=== PATIENT | male | born 1960 | race Caucasian/White ===

== ENCOUNTER 2018-04-21 00:12 | Outpatient (CLI) | payer BC ==
[2018-04-21 11:06] LABS: #Basophils 0.1 thou/uL (0.0-0.2); #Eosinphils 0.4 thou/uL (0.0-0.7); #Lymphocytes 1.8 thou/uL (1.20-3.40); #Monocytes 0.6 thou/uL (0.11-0.59); #Neutrophils 2.8 thou/uL (1.40-6.50); %Basophils 1.1 % (0.0-1.0); %Eosinophils 7.5 % (0.0-10.0); %Monocytes 10.3 % (0.0-10.0); %Neutrophils 49.1 % (42.0-75.0); Hemoglobin 15.5 g/dL (14.0-18.0); Mean Corpuscular HGB CONC 32.9 g/dL (32.0-36.0); Mean Corpuscular Hemoglobin 30.5 pg (27.0-31.0); Mean Corpuscular Volume 92.5 fL (78.0-98.0); Mean Platelet Volume 8.2 fL (7.4-10.4); Platelet Count 182 thou/uL (130-400); RBC Distribution Width 10.9 % (11.5-14.5); Red Blood Cell (RBC) Count 5.08 mill/uL (4.70-6.10); White Blood Cell (WBC) Count 5.6 thou/uL (4.8-10.8)
[2018-04-21 11:23] LABS: Anion Gap 10 mmol/L (10-20); BUN (Urea Nitrogen) 17 mg/dL (8.4-25.7); Calc. Creatinine Clearance 0 mL/min (70-130); Carbon Dioxide 26 mmol/L (22-29); Chloride 108 mmol/L (98-107); Estimated GFR-MDRD 59; Glucose 88 mg/dL (70-105); Hemoglobin A1c 5.1 % (4.0-6.0); Potassium 3.8 mmol/L (3.5-5.1); Sodium 140 mmol/L (136-145)
== END 2018-04-21 00:13 | disposition home or self-care (01) ==
LOC: LABBT 00:12
PROVIDERS: ATTEND Surgery
DX: Z01.812 Encounter for preprocedural laboratory examination (principal); K63.9 Disease of intestine, unspecified
CPT/HCPCS: 80048; 83036; 85025

== ENCOUNTER 2018-04-21 09:15 | Inpatient (IN) | payer BC ==
[2018-04-21 10:02] VITALS: BMI 25.0
[2018-04-26] MEDS ORDERED: Dexamethasone 4 mg/ml Vial ONE (12:03)
[2018-04-26] MEDS ORDERED: Fentanyl 100 MCG/2 ML VIAL ONE ×3 (12:03→17:23)
[2018-04-26] MEDS ORDERED: Midazolam HCl 2 mg/2 ml Vial ONE (12:03)
[2018-04-26] MEDS ORDERED: cefOXitin Sodium/Dextrose,Iso 2 GM in Premix Bag 1 BAG IVPB SCH ×2 (12:15→18:30)
[2018-04-26] MEDS ORDERED: Bupivacaine HCl 0.5%/Epinephrine 1:200,000/PF 30 ml Vial ONE (14:57)
[2018-04-26] MEDS ORDERED: Indocyanine Green 25 MG/10 ML VIAL ONE (14:59)
[2018-04-26] MEDS ORDERED: Dexamethasone 20 MG/5 ML VIAL ONE (15:48)
[2018-04-26] MEDS ORDERED: Rocuronium Bromide 10 MG/ML (10ML VIAL) ONE (15:48)
[2018-04-26] MEDS ORDERED: Ketorolac Tromethamine 30 MG/ML VIAL ONE (15:48)
[2018-04-26] MEDS ORDERED: Glycopyrrolate 0.2 MG/ML 5 ML SYRINGE ONE (15:48)
[2018-04-26] MEDS ORDERED: PROPOFOL 200 MG/20 ML VIAL ONE (15:48)
[2018-04-26] MEDS ORDERED: Ondansetron PF 4 MG/2 ML Vial ONE (15:48)
[2018-04-26] MEDS ORDERED: Lidocaine 1% PF 5 ML VIAL ONE (15:48)
[2018-04-26] MEDS ORDERED: Promethazine HCl 25 MG/ML VIAL IM PRN ×2 (16:47→18:10)
[2018-04-26] MEDS ORDERED: Promethazine HCl 25 MG/ML VIAL SLOW IVP PRN (16:47)
[2018-04-26] MEDS ORDERED: Ondansetron HCl/PF 4 MG/2 ML Vial IVP PRN (16:47)
[2018-04-26] MEDS ORDERED: Fentanyl 100 MCG/2 ML VIAL SLOW IVP PRN ×2 (18:10)
[2018-04-26] MEDS ORDERED: hydrALAZINE 20 MG/ML VIAL SLOW IVP PRN (18:10)
[2018-04-26] MEDS ORDERED: Ondansetron PF 4 MG/2 ML Vial IVP PRN (18:10)
[2018-04-26] MEDS ORDERED: Acetaminophen 1,000 MG in Premix Bag 1 BAG IVPB SCH (18:10)
[2018-04-26] MEDS ORDERED: traMADol HCl 50 MG TAB PO PRN (18:10)
[2018-04-26] MEDS: Famotidine 20 MG TAB PO SCH (20:17)
[2018-04-26] MEDS: traMADol HCl 50 MG TAB PO PRN (20:17)
[2018-04-26] MEDS: Acetaminophen 1,000 MG in Premix Bag 1 BAG IVPB SCH (20:17)
[2018-04-26] MEDS: Enoxaparin Sodium 40 MG/0.4 ML SYRINGE SC SCH (20:17)
[2018-04-26] MEDS: Famotidine/PF 20 mg/2ml Vial SLOW IVP SCH (20:18)
[2018-04-26] MEDS: Zolpidem Tartrate 5 MG TAB PO SCH (20:18)
[2018-04-26] MEDS: D5 1/2 NS w/20 mEq KCL 1,000 ML IV SCH (21:42)
[2018-04-26] MEDS: cefOXitin Sodium/Dextrose,Iso 2 GM in Premix Bag 1 BAG IVPB SCH (21:42)
--- NOTE | 2018-04-26 23:23 | OP ---
DATE OF PROCEDURE: 04/26/2018 PREOPERATIVE DIAGNOSIS: Ascending colon mass. POSTOPERATIVE DIAGNOSIS: Ascending colon mass. PROCEDURE PERFORMED: Laparoscopic Da Luke robot right colectomy with isoperistaltic anastomosis. ANESTHESIA: General. ESTIMATED BLOOD LOSS: 50 mL. COMPLICATIONS: None. SPECIMEN: The cecum was opened on the back table to reveal the polyp to be in the specimen, sent to [facility] for final diagnosis. DESCRIPTION OF PROCEDURE: The patient underwent mechanical and antibiotic bowel prep. He had tap blocks placed on the on the morning of surgery, taken to the operating room and laid spine table. After general anesthetic was obtained, a Carty was placed. The abdomen was shaved, prepped, and draped in a sterile fashion. Left subcostal 5 mm Optiview trocar was placed in usual fashion without injury and high-flow pneumoperitoneum was obtained. The robot camera port was placed at the umbilicus, 11 mm assist port placed in the left lateral abdomen. Robot assist port placed in the left lower quadrant where the 5 mm Optiview port was, this was switched out to the 15 mm robot stapler port. The robot brought in over the right abdomen and docked to the robot. Surgeon goes to the console. The peritoneum was incised on the medial aspect of the ascending colon in a medial to lateral rotation and dissection was performed. The right ureter was found excluded from the dissection. The lateral attachments were taken down. The ileocolic vessels were taken near their base using the robot vessel sealer. The hepatic flexure was mobilized in the usual fashion. The duodenum was left down and out of the dissection plane and not injured. Vessel sealer was used to take the small bowel mesentery up to the small bowel edge where a robot stapler was fired across the terminal ileum. A reload was fired across the proximal transverse colon. This specimen was left down in the pelvis. The small bowel was able to be brought up in an isoperistaltic fashion against the proximal transverse colon under no tension. A 2-0 Vicryl was used to hold the end of the transverse colon and the more proximal aspect of the small bowel together. Enterotomy was made on the end of the isoperistaltic intestine and more distally on the colon and the [id number] anastomosis performed using the robot stapler. The common enterotomy and colotomy was closed using a running 2-0 Vicryl, full thickness followed by 2-0 Vicryl serosal suture. The anastomosis and closure appeared intact without ischemia. ICG green dye is given and there was no evidence of ischemia to the anastomosis. There was no bleeding in the abdomen. All ports were undocked from the robot. The robot stapler port was closed using a Vicryl tie and GraNee needle. All port sites are removed under direct visualization without bleeding. Muscle-splitting incision was made in the right lower quadrant and the Gil wound retractor was placed. The specimen was brought out, opened on the back table to reveal the mass to be in the specimen. Closure of the posterior and anterior fascia was performed to close this. The wound was irrigated copiously and closed using 3-0 Vicryl, 4-0 Monocryl, and Dermabond. All other incisions were closed using 4-0 Monocryl and Dermabond. The patient was sent to Recovery in stable condition. All instrument counts, needle counts and lap counts are correct. Job ID: [id number]
[2018-04-27] MEDS: D5 1/2 NS w/20 mEq KCL 1,000 ML IV SCH (02:27)
[2018-04-27] MEDS: Acetaminophen 1,000 MG in Premix Bag 1 BAG IVPB SCH ×2 (02:27→09:03)
[2018-04-27] MEDS: cefOXitin Sodium/Dextrose,Iso 2 GM in Premix Bag 1 BAG IVPB SCH (05:47)
[2018-04-27 06:01] LABS: #Lymphocytes 0.8 thou/uL (1.20-3.40); #Monocytes 0.8 thou/uL (0.11-0.59); #Neutrophils 8.1 thou/uL (1.40-6.50); %Basophils 0.1 % (0.0-1.0); %Eosinophils 0.1 % (0.0-10.0); %Lymphocytes 8.4 % (21.0-51.0); %Monocytes 7.9 % (0.0-10.0); %Neutrophils 83.5 % (42.0-75.0); Hemoglobin 14.4 g/dL (14.0-18.0); Mean Corpuscular HGB CONC 33.8 g/dL (32.0-36.0); Mean Corpuscular Hemoglobin 31.6 pg (27.0-31.0); Mean Corpuscular Volume 93.6 fL (78.0-98.0); Mean Platelet Volume 8.1 fL (7.4-10.4); Platelet Count 149 thou/uL (130-400); RBC Distribution Width 10.9 % (11.5-14.5); Red Blood Cell (RBC) Count 4.56 mill/uL (4.70-6.10); White Blood Cell (WBC) Count 9.8 thou/uL (4.8-10.8)
[2018-04-27 06:31] LABS: Anion Gap 12 mmol/L (10-20); BUN (Urea Nitrogen) 9 mg/dL (8.4-25.7); Calc. Creatinine Clearance 92 mL/min (70-130); Calcium 8.3 mg/dL (7.8-10.44); Carbon Dioxide 23 mmol/L (22-29); Chloride 104 mmol/L (98-107); Estimated GFR-MDRD 70; Glucose 144 mg/dL (70-105); Potassium 4.1 mmol/L (3.5-5.1); Sodium 135 mmol/L (136-145)
[2018-04-27] MEDS: Famotidine/PF 20 mg/2ml Vial SLOW IVP SCH (07:46)
[2018-04-27] MEDS: Bupropion 150 MG XL TAB PO SCH (08:33)
[2018-04-27] MEDS: Famotidine 20 MG TAB PO SCH ×2 (09:02→20:11)
[2018-04-27] MEDS ORDERED: D5 1/2 NS w/20 mEq KCL 1,000 ML IV SCH (10:23)
--- NOTE | 2018-04-27 11:46 | PDOC.GSPN ---
Surgery Progress Note: Subj - Subjective Patient reports: no new complaints, tolerating liquids well Surgery Progress Note: Obj - Vital signs Vital signs: Vital Signs - Most Recent Temp Pulse Resp BP Pulse Ox 98.0 F 54 L 17 120/77 98 04/27/18 11:44 04/27/18 11:44 04/27/18 11:44 04/27/18 11:44 04/27/18 11:44 - Physical Exam General: no distress Cardiovascular: regular rate and rhythm Respiratory: clear to auscultation Abdomen: soft, nondistended, appropriately tender Wound: healing well Surgery Progress Note: Results - Labs Result Diagrams: 04/27/18 05:30 04/27/18 05:30 Lab results: Laboratory Results - last 24 hr 04/26/18 04/27/18 04/27/18 16:38 05:30 05:30 WBC 9.8 RBC 4.56 L Hgb 14.4 Hct 42.7 MCV 93.6 MCH 31.6 H MCHC 33.8 RDW 10.9 L Plt Count 149 MPV 8.1 Neutrophils % 83.5 H Lymphocytes % 8.4 L Monocytes % 7.9 Eosinophils % 0.1 Basophils % 0.1 Neutrophils # 8.1 H Lymphocytes # 0.8 L Monocytes # 0.8 H Eosinophils # 0.0 Basophils # 0.0 Sodium 135 L Potassium 4.1 Chloride 104 Carbon Dioxide 23 Anion Gap 12 BUN 9 Creatinine 1.08 Estimated GFR (MDRD) 70 Glucose 144 H POC Glucose 137 H Calcium 8.3 Surgery Progress Note: A/P - Problem (1) Colonic mass Current Visit: Yes Code(s): K63.9 - DISEASE OF INTESTINE, UNSPECIFIED Status : Acute - Plan Plan: POD 1 -Doing well -advance to full if doing well
[2018-04-27] MEDS ORDERED: Acetaminophen 500 MG TAB PO PRN (15:00)
[2018-04-27] MEDS: Enoxaparin Sodium 40 MG/0.4 ML SYRINGE SC SCH (20:10)
[2018-04-27] MEDS: traMADol HCl 50 MG TAB PO PRN (20:11)
[2018-04-27] MEDS: Zolpidem Tartrate 5 MG TAB PO SCH (20:12)
[2018-04-28 04:26] VITALS: TEMP 98
[2018-04-28] MEDS: Famotidine 20 MG TAB PO SCH (09:11)
[2018-04-28] MEDS: Bupropion 150 MG XL TAB PO SCH (09:12)
[2018-04-28] MEDS: traMADol HCl 50 MG TAB PO PRN (09:28)
[2018-04-28 12:25] VITALS: BP 112/75
== END 2018-04-28 13:32 | disposition home or self-care (01) | DRG 331 ==
LOC: SURG A 04-26 11:11
PROVIDERS: ADMIT Surgery; ATTEND Surgery
PROC: 0DTF4ZZ Resection of Right Large Intestine, Percutaneous Endoscopic Approach (ICD-10-PCS; principal; 2018-04-26)
PROC: 8E0W4CZ Robotic Assisted Procedure of Trunk Region, Percutaneous Endoscopic Approach (ICD-10-PCS; 2018-04-26)
DX: D12.2 Benign neoplasm of ascending colon (principal); F32.9 Major depressive disorder, single episode, unspecified; Z79.899 Other long term (current) drug therapy; Z88.2 Allergy status to sulfonamides
CPT/HCPCS: 36415; 36416; 80048; 85025; 88309; J0131; J0670; J1100; J1650; J1885; J2001; J2250; J2405; J2704; J3010